=== PATIENT | male | born 1960 | race Caucasian/White ===

== ENCOUNTER 2021-04-15 06:30 | Day surgery (SDC) | payer OTHER ==
[~2021-04-15] VITALS: Ht 165.1 cm; Wt 83.0 kg
[~2021-04-15 06:30] MED LIST: ADULT LOW DOSE81 MG PO; AZELASTIN-FLUTI23 GM; B COMPLEX1 EACH PO; BENADRYL ALLERG25 MG PO; CLARITIN10 MG PO; LEVOTHYROXINE100 MC2 PO; LISINOPRIL20 MG PO; MEN'S MULTIVIT1 EACH PO; SIMVASTATIN40 MG PO; VITAMIN C500 M1 PO; VITAMIN D310 MC2 PO
--- NOTE | 2021-04-15 08:17 | NUR ---
04/15/21 0817 KATTY MACIEL 0808-PATIENT ARRIVES TO PACU ON 2L VIA NC. O2 TITREATED OFF. PATEINT IS NONAROUSABLE. RESP EVEN AND UNLABORED. 0815-PATIENT IS NONAROUSABLE TO VERBAL STIMULI. O2 SATS IN LOW 90'S ON RA. RESP EVEN AND UNLABORED.
--- NOTE | 2021-04-15 09:04 | OR ---
[facility] [address], [place] [address] Signed DATE OF OPERATION: 04/15/2021 SURGEON: Gsu Casper MD PREOPERATIVE DIAGNOSES: 1. Personal history of adenomatous colonic polyps in 2010 at age 50. 2. External hemorrhoids. POSTOPERATIVE DIAGNOSIS: Minimal to moderate internal and external hemorrhoids. PROCEDURE: Colonoscopy without biopsy. ESTIMATED BLOOD LOSS: None. INDICATIONS: Ct is a 60-year-old gentleman, who was asked to see me for followup colonoscopy. I performed his colonoscopy in 2010 at the age of 50. He had a small 5 mm adenomatous polyp removed. He had small external hemorrhoids. He did well with Versed and fentanyl. He returns now for five year followup. He has no lower GI complaints. There is no family history of colon cancer or polyps. In the office, I gave him a pamphlet on colonoscopy. He recalls the test well. There is risk including, but not limited to gas bloating, crampy abdominal pain, bleeding, perforation requiring surgery, and missed diagnosis. He also understands the need for IV conscious sedation. He had expressed understanding and wished to proceed. PROCEDURE NOTE: Ct was taken into our endoscopy suite and placed in the left lateral decubitus position. He was given IV sedation with 6 mg of Versed and 100 mcg of fentanyl. Unfortunately, he was either apneic or he was awake, moaning in pain and having apneic spells. In that regard, it would be escamilla if he consider monitored anesthesia care in the future for his colonoscopies. A digital rectal exam was performed and again he has minimal to moderate external hemorrhoids. He has good sphincter tone. The prostate gland is [id number] indurated and enlarged. The left side is certainly more dominant than the right. The adult colonoscope was introduced and advanced all around into the cecum under direct visualization of the camera. We had to work through areas of apnea versus being awake and diaphoretic with abdominal compression in order to advance the scope. However, it is not difficult to pass the scope technically through Electronically Signed By: GUS CASPER MD 04/15/21 0904 PATIENT NAME: CT MADRIGAL OPERATIVE REPORT DATE OF : 60 REPORT #: [id number] PHYSICIAN: GUS CASPER MD PCP: ADRIANA RODRIGUEZ MD REPORT IS CONFIDENTIAL AND NOT TO BE RELEASED WITHOUT AUTHORIZATION [facility] [address] [place] [id number] Signed his colon. Again, he should consider monitored anesthesia care with propofol in the future. Fortunately, his prep was quite good. We could easily see the appendiceal orifice and the ileocecal valve. The scope was then slowly withdrawn. We took pictures throughout for photodocumentation. No polyps on this occasion. No diverticulosis. Upon retroflexion of the scope, he does have minimal internal hemorrhoids. After this, the gas was suctioned out and the colonoscope removed. Ct tolerated the procedure quite well. RECOMMENDATIONS: I will see Ct in 5 years for repeat colonoscopy. He should follow his prostate exam closely with his primary care provider. He should consider monitored anesthesia care in the future as described above. Gus Casper MD ALB/MODL /[id number] cc: MD Helio Murphy MD Copies: GUS CASPER MD, JONATHAN MD ~ Electronically Signed By: GUS CASPER MD 04/15/21 0904 PATIENT NAME: CT MADRIGAL OPERATIVE REPORT DATE OF : 60 REPORT #: [id number] PHYSICIAN: GUS CASPER MD PCP: ADRIANA RODRIGUEZ MD REPORT IS CONFIDENTIAL AND NOT TO BE RELEASED WITHOUT AUTHORIZATION
--- NOTE | 2021-04-15 13:17 | NUR ---
PT ALERT, ORIENTED AND SUPPORTED BY HIS . PT MENTIONED THAT IT HAS BEEN 10 YRS SINCE LAST SCOPE. ALL QUESTIONS ASKED ANSWERED. PT CONCERNED OF EFFECTS OF ANESTHESIA, ENCOURAGED PT TO VISIT WITH DR BEFORE SCOPE. PT REQUESTED PRAYER, WILL FOLLOW NEEDED
== END 2021-04-15 09:15 | disposition home or self-care (01) ==
LOC: DS 06:30 → OPS 06:30 → DS 06:45 → OPS 09:15
PROVIDERS: ATTEND Colon & Rectal Surgery
PROC: 0DJD8ZZ Inspection of Lower Intestinal Tract, Via Natural or Artificial Opening Endoscopic (ICD-10-PCS; principal; 2021-04-15 06:45)
DX: Z09 Encounter for follow-up examination after completed treatment for conditions other than malignant neoplasm (principal); K64.4 Residual hemorrhoidal skin tags; I10 Essential (primary) hypertension; E03.9 Hypothyroidism, unspecified; K64.8 Other hemorrhoids; Z86.010 Personal history of colon polyps; Z20.822 Contact with and (suspected) exposure to COVID-19
CPT/HCPCS: 99153; G0500; J2250; J3010; J7121